=== PATIENT | male | born 1950 | race Caucasian/White ===

== ENCOUNTER → 2017-09-11 09:23 | Outpatient (CLI) | payer MEDICARE, OTHER, SELFPAY ==
--- NOTE | 2017-09-11 | DI.US.S_ITS ---
PROCEDURE: US ABDOMEN LIMITED INDICATIONS: 67 year-old male with hemochromatosis. TECHNIQUE: Real-time focused scanning was performed of the abdomen, with image documentation. COMPARISON: [facility], US, ABDOMEN LIMITED, 10/05/2016, 15:30. [facility], US, US ABDOMEN, 04/29/2015, 9:22. FINDINGS: Liver is normal in overall size and echo texture. No suspicious hepatic mass lesions. No intrahepatic biliary ductal dilation. No perihepatic ascites. Extrahepatic bile duct is nondilated at 5 mm. IMPRESSION: No suspicious hepatic mass lesions. Dictated by: Mina Multani M.D. on 09/11/2017 at 13:10 Approved by: Mina Multani M.D. on 09/11/2017 at 13:13
== END ==
PROVIDERS: Visit Provider Nurse Practitioner Gerontology
DX: E83.119 Hemochromatosis, unspecified (principal)
CPT/HCPCS: 76705

== ENCOUNTER → 2017-09-20 13:52 | Oncology outpatient (ONC) | payer MEDICARE, OTHER, SELFPAY ==
[2017-09-20 14:16] LABS: Add Manual Diff / Slide Review NO; Basophils Percent Auto 0.7 % (0-2); Hemoglobin 15.3 g/dL (13.5-17.5); Lymphocytes Percent Auto 30.1 % (25-40); Mean Corpuscular Hemoglobin 29.7 PG (26-34); Mean Corpuscular Volume 87.3 fL (80-100); Monocytes Percent Auto 12.6 % (3-14); Neutrophils Absolute Auto 2600 /uL (3000-5900); Neutrophils Percent Auto 53.6 % (50-75); Platelet Count 207 X10^3/uL (150-400); Red Blood Cell Count 5.16 X10^6/uL (4.5-5.9); Red Cell Distribution Width 14.1 % (11.6-14.8); White Blood Cell Count 4.9 X10^3/uL (4.5-11.0)
[2017-09-20 14:24] LABS: Alanine Aminotransferase 28 IU/L (21-72); Albumin 4.4 g/dL (3.5-5.0); Albumin Globulin Ratio 1.3 (1.0-2.8); Alkaline Phosphatase 62 U/L (38-126); Aspartate Aminotransferase 23 IU/L (17-59); Bilirubin Total 0.6 mg/dL (0.2-1.3); Blood Urea Nitrogen 19 mg/dL (9-20); Calcium 9.1 mg/dL (8.4-10.2); Carbon Dioxide 22 mmol/L (22-32); Chloride 106 mmol/L (98-107); Estimated Glomerular Filt Rate > 60.0 mL/min (>60); Globulin 3.3 g/dL (1.7-4.1); Glucose 102 mg/dL (80-110); HEMOLYSIS < 15 (0-50); Potassium 4.3 mmol/L (3.4-5.1); Sodium 140 mmol/L (137-145); Total Protein 7.7 g/dL (6.3-8.2)
--- NOTE | 2017-09-20 15:18 | ONC.APRN.PN ---
Assessment and Plan (1) Hemochromatosis Current visit: Yes Status: Acute 09/20/17 15:24 Santino is a 67-year-old male who carries a diagnosis of hemochromatosis. CBC demonstrates stable blood counts today specifically hematocrit is 45.0. Abdominal ultrasound did not identify any hepatomegaly. Patient is completely asymptomatic he had no complaints whatsoever on exam today. Inspection of his skin did not reveal any suspicious lesions. Patient does not have a primary care provider I strongly encouraged him to secure primary care. AFP,% saturation remain pending at time of dictation. Patient will call early next week Sunday or Sunday for these results. Return to clinic in 6 months time for provider visit CBC, CMP. If counts remain stable consider transferring care back to patient's primary care provider. Patient agrees with above plan of care. No therapeutic phlebotomy indicated at this time. - Time Spent with Patient 35 mins PN -Subjective Interval history: The patient is a 67 year old Male who is being seen in the clinic 09/20/2017. He carries a diagnosis of sporadic porphyria cutanea tarda as well as hereditary hemachromatosis. Patient presents today for his 6 month clinical evaluation. During interval he is not aware of any recent vesicular skin lesions. He continues with CBC checks every 3 months with therapeutic phlebotomy for a hematocrit of 45 or above. Patient's last therapeutic phlebotomy was 09/12/2016. Percent saturation on 03/21/2017 at 15%. 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 Patient's new chief complaints today include: none. he does report feeling tired today however specifically becuase he was awake past midnight last night celebrating the 19 of September holiday. Abd ultrasound did not demonstrate any hepatosplenomegaly. No new complaints. 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 He does not have a primary care provider. In the past he has received primary care on the [employer] [facility]. Past Medical History The patient's past medical history is significant for: 1. Sporadic porphyria cutanea tarda, diagnosis confirmed both on clinical grounds with blistering skin lesions along the hands, absence of neurovisceral symptoms, elevation of uroporphyrins, as well as a normal delta-ALA. Likely, reduction in activity of his uroporphyrinogen decarboxylase enzyme is due to contributing factors including iron overload from hemochromatosis and hepatitis C. 2. 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 The patient is undergoing q. 3 month phlebotomy for hematocrit of 45 or above with a goal of maintaining a percent saturation of 20% or less. 3. Hepatitis C under the management of GI, to be starting definitive treatment shortly. 4. Seizure disorder diagnosed in 2008 with a subsequent episode in 2012, under the care of Dr. Lorenzana, Neurology, in [place] and on levetiracetam. 5. Hypertension. Results - Labs 09/20/17 13:58 09/20/17 13:58 Laboratory Last Values WBC 4.9 X10^3/uL (4.5-11.0) 09/20/17 13:58 RBC 5.16 X10^6/uL (4.5-5.9) 09/20/17 13:58 Hgb 15.3 g/dL (13.5-17.5) 09/20/17 13:58 Hct 45.0 % (41-53) 09/20/17 13:58 MCV 87.3 fL (80-100) 09/20/17 13:58 MCH 29.7 PG (26-34) 09/20/17 13:58 MCHC 34.0 % (30-36) 09/20/17 13:58 RDW 14.1 % (11.6-14.8) 09/20/17 13:58 Plt Count 207 X10^3/uL (150-400) 09/20/17 13:58 Neut % (Auto) 53.6 % (50-75) 09/20/17 13:58 Lymph % (Auto) 30.1 % (25-40) 09/20/17 13:58 [place] % (Auto) 12.6 % (3-14) 09/20/17 13:58 Eos % (Auto) 3.0 % (2-4) 09/20/17 13:58 Baso % (Auto) 0.7 % (0-2) 09/20/17 13:58 Neut # (Auto) 2600 /uL (0129-4864) L 09/20/17 13:58 Sodium 140 mmol/L (137-145) 09/20/17 13:58 Potassium 4.3 mmol/L (3.4-5.1) 09/20/17 13:58 Chloride 106 mmol/L (98-107) 09/20/17 13:58 Carbon Dioxide 22 mmol/L (22-32) 09/20/17 13:58 BUN 19 mg/dL (9-20) 09/20/17 13:58 Creatinine 1.00 mg/dL (0.66-1.25) 09/20/17 13:58 Estimated GFR > 60.0 mL/min (>60) 09/20/17 13:58 BUN/Creatinine Ratio 19.0 (6-22) 09/20/17 13:58 Glucose 102 mg/dL (80-110) 09/20/17 13:58 Calcium 9.1 mg/dL (8.4-10.2) 09/20/17 13:58 Total Bilirubin 0.6 mg/dL (0.2-1.3) 09/20/17 13:58 AST 23 IU/L (17-59) 09/20/17 13:58 ALT 28 IU/L (21-72) 09/20/17 13:58 Alkaline Phosphatase 62 U/L (38-126) 09/20/17 13:58 Total Protein 7.7 g/dL (6.3-8.2) 09/20/17 13:58 Albumin 4.4 g/dL (3.5-5.0) 09/20/17 13:58 Globulin 3.3 g/dL (1.7-4.1) 09/20/17 13:58 Albumin/Globulin Ratio 1.3 (1.0-2.8) 09/20/17 13:58 Home Medications and Allergies Home Medications Medication Instructions Recorded Confirmed Type lisinopril [Zestril] 40 mg PO QDAY #30 09/18/11 Rx carbamazepine [Tegretol XR] 200 mg PO BID #0 01/02/17 History Exam Narrative: non toxic appearing. 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 Absent: conjunctival icterus, scleral injection ENT: Present: mucous membranes moist - Routine Neck Exam Present: supple. Absent: lymphadenopathy - Routine Respiratory Exam Present: Clear to auscultation bilaterally, decreased breath sounds. Absent: rales, rhonchi, wheezes - Routine Cardiovascular Exam Present: RRR, S1, S2. Absent: murmur, gallop, rubs, JVD - Routine Abdominal Exam Present: soft, normoactive bowel sounds. Absent: tenderness, distended, organomegaly - Routine Extremities Exam Absent: edema, calf tenderness - Routine Skin Exam Present: intact. Absent: erythema, petechiae, lesions, rash - Routine Neurological Exam Present: alert, oriented X3 - Routine Psychiatric Exam Present: normal affect
[2017-09-20 15:20] LABS: HEMOLYSIS 21 (0-50); Iron 115 ug/dL (49-181)
--- NOTE | 2017-09-20 15:24 | P.PNONC_ITS ---
Assessment and Plan (1) Hemochromatosis Current visit: Yes Status: Acute 09/20/17 15:24 Santino is a 67-year-old male who carries a diagnosis of hemochromatosis. CBC demonstrates stable blood counts today specifically hematocrit is 45.0. Abdominal ultrasound did not identify any hepatomegaly. Patient is completely asymptomatic he had no complaints whatsoever on exam today. Inspection of his skin did not reveal any suspicious lesions. Patient does not have a primary care provider I strongly encouraged him to secure primary care. AFP,% saturation remain pending at time of dictation. Patient will call early next week Sunday or Sunday for these results. Return to clinic in 6 months time for provider visit CBC, CMP. If counts remain stable consider transferring care back to patient's primary care provider. Patient agrees with above plan of care. No therapeutic phlebotomy indicated at this time. - Time Spent with Patient 35 mins PN -Subjective Interval history: The patient is a 67 year old Male who is being seen in the clinic 09/20/2017. He carries a diagnosis of sporadic porphyria cutanea tarda as well as hereditary hemachromatosis. Patient presents today for his 6 month clinical evaluation. During interval he is not aware of any recent vesicular skin lesions. He continues with CBC checks every 3 months with therapeutic phlebotomy for a hematocrit of 45 or above. Patient's last therapeutic phlebotomy was 09/12/2016. Percent saturation on 03/21/2017 at 15%. 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 Patient's new chief complaints today include: none. he does report feeling tired today however specifically becuase he was awake past midnight last night celebrating the 19 of September holiday. Abd ultrasound did not demonstrate any hepatosplenomegaly. No new complaints. 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 He does not have a primary care provider. In the past he has received primary care [place] the [employer]. Past Medical History The patient's past medical history is significant for: 1. Sporadic porphyria cutanea tarda, diagnosis confirmed both on clinical grounds with blistering skin lesions along the hands, absence of neurovisceral symptoms, elevation of uroporphyrins, as well as a normal delta-ALA. Likely, reduction in activity of his uroporphyrinogen decarboxylase enzyme is due to contributing factors including iron overload from hemochromatosis and hepatitis C. 2. 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 The patient is undergoing q. 3 month phlebotomy for hematocrit of 45 or above with a goal of maintaining a percent saturation of 20% or less. 3. Hepatitis C under the management of GI, to be starting definitive treatment shortly. 4. Seizure disorder diagnosed in 2008 with a subsequent episode in 2012, under the care of Dr. Lorenzana, Neurology, in [place] and on levetiracetam. 5. Hypertension. Results - Labs 09/20/17 13:58 09/20/17 13:58 Laboratory Last Values WBC 4.9 X10^3/uL (4.5-11.0) 09/20/17 13:58 RBC 5.16 X10^6/uL (4.5-5.9) 09/20/17 13:58 Hgb 15.3 g/dL (13.5-17.5) 09/20/17 13:58 Hct 45.0 % (41-53) 09/20/17 13:58 MCV 87.3 fL (80-100) 09/20/17 13:58 MCH 29.7 PG (26-34) 09/20/17 13:58 MCHC 34.0 % (30-36) 09/20/17 13:58 RDW 14.1 % (11.6-14.8) 09/20/17 13:58 Plt Count 207 X10^3/uL (150-400) 09/20/17 13:58 Neut % (Auto) 53.6 % (50-75) 09/20/17 13:58 Lymph % (Auto) 30.1 % (25-40) 09/20/17 13:58 [place] % (Auto) 12.6 % (3-14) 09/20/17 13:58 Eos % (Auto) 3.0 % (2-4) 09/20/17 13:58 Baso % (Auto) 0.7 % (0-2) 09/20/17 13:58 Neut # (Auto) 2600 /uL (6154-3939) L 09/20/17 13:58 Sodium 140 mmol/L (137-145) 09/20/17 13:58 Potassium 4.3 mmol/L (3.4-5.1) 09/20/17 13:58 Chloride 106 mmol/L (98-107) 09/20/17 13:58 Carbon Dioxide 22 mmol/L (22-32) 09/20/17 13:58 BUN 19 mg/dL (9-20) 09/20/17 13:58 Creatinine 1.00 mg/dL (0.66-1.25) 09/20/17 13:58 Estimated GFR > 60.0 mL/min (>60) 09/20/17 13:58 BUN/Creatinine Ratio 19.0 (6-22) 09/20/17 13:58 Glucose 102 mg/dL (80-110) 09/20/17 13:58 Calcium 9.1 mg/dL (8.4-10.2) 09/20/17 13:58 Total Bilirubin 0.6 mg/dL (0.2-1.3) 09/20/17 13:58 AST 23 IU/L (17-59) 09/20/17 13:58 ALT 28 IU/L (21-72) 09/20/17 13:58 Alkaline Phosphatase 62 U/L (38-126) 09/20/17 13:58 Total Protein 7.7 g/dL (6.3-8.2) 09/20/17 13:58 Albumin 4.4 g/dL (3.5-5.0) 09/20/17 13:58 Globulin 3.3 g/dL (1.7-4.1) 09/20/17 13:58 Albumin/Globulin Ratio 1.3 (1.0-2.8) 09/20/17 13:58 Home Medications and Allergies Home Medications Medication Instructions Recorded Confirmed Type lisinopril [Zestril] 40 mg PO QDAY #30 09/18/11 Rx carbamazepine [Tegretol XR] 200 mg PO BID #0 01/02/17 History Exam Narrative: non toxic appearing. 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 Absent: conjunctival icterus, scleral injection ENT: Present: mucous membranes moist - Routine Neck Exam Present: supple. Absent: lymphadenopathy - Routine Respiratory Exam Present: Clear to auscultation bilaterally, decreased breath sounds. Absent: rales, rhonchi, wheezes - Routine Cardiovascular Exam Present: RRR, S1, S2. Absent: murmur, gallop, rubs, JVD - Routine Abdominal Exam Present: soft, normoactive bowel sounds. Absent: tenderness, distended, organomegaly - Routine Extremities Exam Absent: edema, calf tenderness - Routine Skin Exam Present: intact. Absent: erythema, petechiae, lesions, rash - Routine Neurological Exam Present: alert, oriented X3 - Routine Psychiatric Exam Present: normal affect
[2017-09-20 15:28] VITALS: BP 119/75; PULSE 68; RESP 15; TEMP 36.9; O2SAT 99
[2017-09-20 15:31] LABS: Percent Iron Saturation 28 % (20-50); Total Iron Binding Capacity 404 ug/dL (261-462); Transferrin 309 mg/dL (206-381)
[2017-09-22 14:54] LABS: Alpha Fetoprotein 2.7 ng/mL (< 6.1)
--- NOTE | 2018-05-07 13:28 | ONC.SCHED ---
called patient to schedule follow-up, his phone is not taking calls at this time and I don't have a way to leave a message.
== END ==
LOC: ONC 13:56
PROVIDERS: Visit Provider Nurse Practitioner Gerontology
DX: E83.110 Hereditary hemochromatosis (principal); E80.1 Porphyria cutanea tarda; B19.20 Unspecified viral hepatitis C without hepatic coma; I10 Essential (primary) hypertension; G40.909 Epilepsy, unspecified, not intractable, without status epilepticus
CPT/HCPCS: 36415; 80053; 82105; 83540; 83550; 85025; 99214

== ENCOUNTER → 2024-02-04 09:21 | Outpatient (CLI) | payer MEDICARE, OTHER, SELFPAY ==
--- NOTE | 2024-02-04 09:24 | DI.US.S_ITS ---
PROCEDURE: US PERIPH VENOUS LOW EXTREM BI INDICATIONS: LEFT FOOT PARESTHESIA,BI PERIPHERAL EDEMA TECHNIQUE: Real-time imaging, as well as color and pulse Doppler interrogation, were performed of the deep veins of both legs from the inguinal ligament to the popliteal fossa, with documentation of the visualized calf veins. COMPARISON: None. FINDINGS: Right: The common femoral, femoral, popliteal, and the visualized calf veins are normally compressible, and free of intraluminal thrombus. Color and pulse Doppler demonstrate normal phasic intravascular flow. There is normal augmentation response to distal compression maneuver. Left: The common femoral, femoral, popliteal, and the visualized calf veins are normally compressible, and free of intraluminal thrombus. Color and pulse Doppler demonstrate normal phasic intravascular flow. There is normal augmentation response to distal compression maneuver. IMPRESSION: No findings of deep venous thrombosis in either lower extremity. Dictated by: Rhett Kwok M.D. on 02/04/2024 at 10:55 Approved by: Rhett Kwok M.D. on 02/04/2024 at 10:56
== END ==
LOC: US 09:22
PROVIDERS: Referring Provider Family Medicine; Visit Provider Family Medicine
DX: R60.9 Edema, unspecified (principal)
CPT/HCPCS: 93970

== ENCOUNTER → 2024-03-27 15:28 | Outpatient (CLI) | payer MEDICARE, OTHER, SELFPAY ==
--- NOTE | 2024-03-27 15:31 | DI.RAD.S_ITS ---
PROCEDURE: XR FOOT LT MIN 3V INDICATIONS: FOOT PAIN TECHNIQUE: 3 views of the foot were acquired. COMPARISON: .. FINDINGS: Bones: No fractures or dislocations. No suspicious bony lesions. Soft tissues: No tibiotalar joint effusion. Achilles tendon appears normal. IMPRESSION: Minimal 1st MTP joint space narrowing, equivocal it to that seen on the right same day. No trauma or erosive arthritis found. Dictated by: Jose Coughlin M.D. on 03/28/2024 at 8:25 Approved by: Jose Coughlin M.D. on 03/28/2024 at 8:26
--- NOTE | 2024-03-27 15:31 | DI.RAD.S_ITS ---
PROCEDURE: XR FOOT RT MIN 3V INDICATIONS: FOOT PAIN TECHNIQUE: 3 views of the foot were acquired. COMPARISON: None. FINDINGS: Bones: No fractures or dislocations. No suspicious bony lesions. Soft tissues: No tibiotalar joint effusion. Achilles tendon appears normal. IMPRESSION: No acute bony abnormality. Minimal osteoarthritic joint space narrowing at the 1st MTP joint incidentally noted. Dictated by: Jose Coughlin M.D. on 03/28/2024 at 8:24 Approved by: Jose Coughlin M.D. on 03/28/2024 at 8:24
== END ==
LOC: RAD 15:30
PROVIDERS: Referring Provider Podiatrist Foot & Ankle Surgery; Visit Provider Podiatrist Foot & Ankle Surgery
DX: M79.671 Pain in right foot (principal); M79.672 Pain in left foot
CPT/HCPCS: 73630